=== PATIENT | female | born 1950 | race Caucasian/White ===

== ENCOUNTER 2021-04-28 09:28 | Emergency (ER) | payer MEDICARE, OTHER ==
[2021-04-28] MEDS ORDERED: Sodium Chloride 0.9% 1000 ML 1,000 ML IV SCH (10:00)
[2021-04-28] MEDS ORDERED: Sodium Chloride 0.9% 1000 ML 1,000 ML ONE (10:07)
--- NOTE | 2021-04-28 10:29 | ERPHSYRPT ---
- History of Present Illness Time Seen by Provider: 04/28/21 09:50 Source: patient Exam Limitations: no limitations Patient Subjective Stated Complaint: abnormal labs Triage Nursing Assessment: pt to ED c/o abnormal labs, elevated D dimer. PCP called this am to refer pt to ED for evaluation. pt reports fall around 1 month ago which caused pain and swelling to RLE which has since resolved. also c/o R side back pain intermittently since fall. denies hx blood clots. takes daily 81 mg asa. Physician History: Patient is a 70-year-old female presents to our ED for evaluation of an elevated D-dimer. Patient states she fell approximately a month ago. Patient injured her right calf. Patient's right calf pain resolved. Patient complains of right-sided back pain. Patient's primary care doctor became concerned for pos sible PE. A D-dimer was ordered. D-dimer resulted at 1200 per patient. Patient was advised to come to our ED for a CTA of her chest. Patient otherwise asymptomatic. No chest pain. No shortness of breath. No nausea vomiting or diaphoresis. Negative Homans' sign. Patient denies leg/calf pain. Symptoms are mild in intensity. No specific worsening or improving factors. Patient voices no other complaints or concerns at this time. Timing/Duration: today Severity: mild Modifying Factors: Improves With: nothing Associated Symptoms: denies symptoms Allergies/Adverse Reactions: No Known Drug Allergies Allergy (Unverified 04/28/21 09:51) Home Medications: Aspirin 81 gm Chew [Baby Aspirin 81 mg Chew] 81 mg PO DAILY 04/28/21 [History] Lisinopril/Hydrochlorothiazide [Lisinopril-Hctz 20-12.5 mg Tab] 1 each PO DAILY 04/28/21 [History] Hx Tetanus, Diphtheria Vaccination/Date Given: Yes Hx Influenza Vaccination/Date Given: No Hx Pneumococcal Vaccination/Date Given: No Immunizations Up to Date: No Travel Risk - International Travel Have you traveled outside of the country in past 3 weeks: No - Coronavirus Screening Are you exhibiting any of the following symptoms?: No Close contact with a COVID-19 positive Pt in past 14-21 Days: No - Vaccine Status Have you recieved a Covid-19 vaccination: No - Review of Systems Constitutional: No Symptoms, No Fever, No Chills Eyes: No Symptoms Ears, Nose, & Throat: No Symptoms Respiratory: No Symptoms, No Cough, No Dyspnea Cardiac: No Symptoms, No Chest Pain, No Edema, No Syncope Abdominal/Gastrointestinal: No Symptoms, No Abdominal Pain, No Nausea, No Vomiting, No Diarrhea Genitourinary Symptoms: No Symptoms, No Dysuria Musculoskeletal: No Symptoms, No Back Pain, No Neck Pain Skin: No Symptoms, No Rash Neurological: No Symptoms, No Dizziness, No Focal Weakness, No Sensory Changes Psychological: No Symptoms Endocrine: No Symptoms Hematologic/Lymphatic: No Symptoms Immunological/Allergic: No Symptoms All Other Systems: Reviewed and Negative - Past Medical History Pertinent Past Medical History: Yes Cardiac History: Hypertension - Past Surgical History Past Surgical History: Yes Female Surgical History: Dilation & Curettage - Social History Smoking Status: Never smoker Exposure to second hand smoke: No Drug Use: none Patient Lives Alone: No - Female History Hx Now: No - Nursing Vital Signs Nursing Vital Signs: Initial Vital Signs Temperature 98.1 F 04/28/21 09:40 Pulse Rate 64 04/28/21 09:40 Respiratory Rate 18 04/28/21 09:40 Blood Pressure 182/88 04/28/21 09:40 O2 Sat by Pulse Oximetry 96 04/28/21 09:40 Pain Scale Pain Intensity 0 - Physical Exam General Appearance: no apparent distress, alert Eye Exam: PERRL/EOMI, eyes nml inspection Ears, Nose, Throat Exam: normal ENT inspection, TMs normal, pharynx normal, moist mucous membranes Neck Exam: normal inspection, non-tender, supple, full range of motion Respiratory Exam: normal breath sounds, lungs clear, airway intact, No respiratory distress Cardiovascular Exam: regular rate/rhythm, normal heart sounds, normal peripheral pulses Gastrointestinal/Abdomen Exam: soft, normal bowel sounds, No tenderness, No mass Back Exam: normal inspection, normal range of motion, No CVA tenderness, No vertebral tenderness Extremity Exam: normal inspection, normal range of motion, pelvis stable Neurologic Exam: alert, oriented x 3, cooperative, normal mood/affect, sensation nml, No motor deficits Skin Exam: normal color, warm, dry, No rash Lymphatic Exam: No adenopathy SpO2 Interpretation: normal SpO2: 93 O2 Delivery: Room Air - Course Nursing assessment & vital signs reviewed: Yes EKG Interpreted by Me: RATE (81), Sinus Rhythm, NORMAL AXIS, NORMAL INTERVALS Ordered Tests: Active Orders 24 hr Category Date Time Status [employer] STAT Care 04/28/21 09:54 Active EKG-ER Only STAT Care 04/28/21 09:53 Active IV Insertion STAT Care 04/28/21 09:53 Active Pulse Oximetry (ED) STAT Care 04/28/21 09:53 Active CHEST WITH CONTRAST [CT] Stat Exams 04/28/21 09:53 Completed CBC W DIFF Stat Lab 04/28/21 10:30 Completed CMP Stat Lab 04/28/21 10:30 Completed TROPONIN Q3H Lab 04/28/21 10:30 Completed TROPONIN Q3H Lab 04/28/21 13:00 Ordered TROPONIN Q3H Lab 04/28/21 16:00 Ordered TROPONIN Q3H Lab 04/28/21 19:00 Ordered TROPONIN Q3H Lab 04/28/21 22:00 Ordered Medication Summary Generic Name Dose Route Start Last Admin Trade Name Freq PRN Reason Stop Dose Admin Sodium Chloride 1,000 mls @ 100 mls/hr 04/28/21 10:00 04/28/21 10:08 Sodium Chloride 0.9% 1000 Ml IV 05/28/21 09:59 100 mls/hr .Q10H TORI Administration Lab/Rad Data: Laboratory Result Diagrams 04/28/21 10:30 04/28/21 10:30 Laboratory Results 04/28/21 04/28/21 04/28/21 Range/Units 10:30 10:30 10:30 WBC 5.1 (4.0-10.5) K/mm3 RBC 5.03 (4.1-5.4) M/mm3 Hgb 15.0 (12.0-16.0) gm/dl Hct 46.5 (35-47) % MCV 92.4 (78-100) fl MCH 29.8 (26-32) pg MCHC 32.3 (32-36) g/dl RDW 13.1 (11.5-14.0) % Plt Count 173 (150-450) K/mm3 MPV 10.7 (7.5-11.0) fl Gran % 67.5 H (36.0-66.0) % Eos # (Auto) 0.19 (0-0.5) Absolute Lymphs (auto) 0.98 L (1.0-4.6) Absolute Monos (auto) 0.43 (0.0-1.3) Lymphocytes % 19.4 L (24.0-44.0) % Monocytes % 8.5 (0.0-12.0) % Eosinophils % 3.8 (0.00-5.0) % Basophils % 0.8 (0.0-0.4) % Absolute Granulocytes 3.42 (1.4-6.9) Basophils # 0.04 (0-0.4) Sodium 138 (137-145) mmol/L Potassium 3.9 (3.5-5.1) mmol/L Chloride 103 (98-107) mmol/L Carbon Dioxide 26 (22-30) mmol/L Anion Gap 12.8 (5-15) MEQ/L BUN 20 H (7-17) mg/dL Creatinine 0.84 (0.52-1.04) mg/dL Estimated GFR > 60.0 ML/MIN Glucose 132 H (74-106) mg/dL Calcium 9.8 (8.4-10.2) mg/dL Total Bilirubin 0.70 (0.2-1.3) mg/dL AST 28 (14-36) U/L ALT 15 (0-35) U/L Alkaline Phosphatase 88 (38-126) U/L Troponin I < 0.012 (0.000-0.034) ng/mL Serum Total Protein 7.3 (6.3-8.2) g/dL Albumin 4.2 (3.5-5.0) g/dL - Progress Progress: improved Progress Note: Patient is a 70-year-old female presents to our ED as referral to rule out PE secondary to elevated D-dimer. Chest is negative for PE. Incidental findings include spine arthritis, small hiatal hernia, fatty liver and left renal cyst. Patient asymptomatic. Vital stable. Patient has no complaints. Will discharge home. Patient agrees to follow-up with primary care doctor within 48 hours for reevaluation. Portions of this note were created with voice recognition technology. There may be grammatical, spelling, punctuation or sound alike errors 04/28/21 12:22 Counseled pt/family regarding: lab results, diagnosis, need for follow-up, rad results - Departure Departure Disposition: Home Clinical Impression: Hiatal hernia, Arthritis of spine, Fatty liver, Renal cyst, Elevated d-dimer Condition: Stable Critical Care Time: No Referrals: FLORIN SPARROW MD [Primary Care Provider] - Additional Instructions: Discharge/Care Plan AIDAN LIAO was seen on 04/28/21 in the Emergency Room. The patient was counseled regarding Diagnosis,Lab results, Imaging studies, need for follow up and when to return to the Emergency Room. Prescriptions given: Discharge Note I have spoken with the patient and/or caregivers. I have explained the patient's condition, diagnosis and treatment plan based on the information available to me at this time. I have answered the patient's and/or caregiver's questions and addressed any concerns. The patient and/or caregivers have as good understanding of the patient's diagnosis, condition and treatment plan as can be expected at this point. The vital signs have been stable. The patient's condition is stable and appropriate for discharge from the emergency department. The patient will pursue further outpatient evaluation with the primary care physician or other designated or consulting physician as outlined in the discharge instructions. The patient and/or caregivers are agreeable to this plan of care and follow-up instructions have been explained in detail. The patient and/or caregivers have received these instruction. The patient/and or caregivers are aware that any significant change in condition or worsening of symptoms should prompt an immediate return to this or the closest emergency department or call 911.
[2021-04-28 10:32] LABS: Absolute Neutrophil Ct (ANC) 3.42 (1.4-6.9); BASOPHIL % 0.8 % (0.0-0.4); Basophil (Absolute #) 0.04 (0-0.4); Eosinophil % 3.8 % (0.00-5.0); Eosinophil (Absolute #) 0.19 (0-0.5); Hematocrit 46.5 % (35-47); Lymphocyte (Absolute #) 0.98 (1.0-4.6); Lymphocytes % 19.4 % (24.0-44.0); Mean Cell Volume 92.4 fl (78-100); Mean Corpuscular Hemoglobin 29.8 pg (26-32); Mean Corpuscular Hgb Concent. 32.3 g/dl (32-36); Mean Platelet Volume 10.7 fl (7.5-11.0); Monocyte (Absolute #) 0.43 (0.0-1.3); Monocytes % 8.5 % (0.0-12.0); Neutrophil % 67.5 % (36.0-66.0); Platelet Count 173 K/mm3 (150-450); Red Blood Count 5.03 M/mm3 (4.1-5.4); Red Cell Distribution Width 13.1 % (11.5-14.0); White Blood Count 5.1 K/mm3 (4.0-10.5)
[2021-04-28 10:44] LABS: ALBUMIN 4.2 g/dL (3.5-5.0); ALKALINE PHOSPHATASE 88 U/L (38-126); ANION GAP 12.8 MEQ/L (5-15); BLOOD UREA NITROGEN 20 mg/dL (7-17); CHLORIDE 103 mmol/L (98-107); Calcium 9.8 mg/dL (8.4-10.2); Carbon Dioxide 26 mmol/L (22-30); Creatinine 1 0.84 mg/dL (0.52-1.04); EST GLOMERULAR FILTRATION RATE > 60.0 ML/MIN; Glucose 132 mg/dL (74-106); Potassium 3.9 mmol/L (3.5-5.1); SGOT/AST 28 U/L (14-36); SGPT/ALT 15 U/L (0-35); SODIUM 138 mmol/L (137-145); Total Protein 7.3 g/dL (6.3-8.2)
--- NOTE | 2021-04-28 11:35 | XRAY ---
Indication: Right chest pain. Elevated d-dimer. Multiple contiguous axial images obtained through the chest using 80 cc Isovue 370 contrast and PE protocol. Comparison: None There is good opacification of the pulmonary arteries to include the lobar and segmental branches. No pulmonary embolus. Heart is not enlarged. Aorta normal in course and caliber. No pathologic mediastinal/hilar lymphadenopathy. Small hiatal hernia. Lungs demonstrates mild scattered subsegmental atelectasis/scarring bilaterally. No suspicious pulmonary mass, infiltrate, or effusion. Bony thorax intact with mild degenerative changes throughout the spine. Limited upper abdomen demonstrates mild fatty liver and 1.2 cm left mid renal cyst. Impression: 1. Negative pulmonary embolus. Scattered atelectasis/scarring. No acute cardiopulmonary abnormalities. 2. Incidental small hiatal hernia, fatty liver, and left renal cyst.
[2021-04-28 12:02] VITALS: PULSE 64
[2021-04-28 12:35] VITALS: BP 146/94; O2SAT 96
== END 2021-04-28 12:41 | disposition home or self-care (01) ==
LOC: ED 09:28
DX: K44.9 Diaphragmatic hernia without obstruction or gangrene (principal); M47.819 Spondylosis without myelopathy or radiculopathy, site unspecified; K76.0 Fatty (change of) liver, not elsewhere classified; N28.1 Cyst of kidney, acquired; R79.89 Other specified abnormal findings of blood chemistry; M79.661 Pain in right lower leg
CPT/HCPCS: 36000; 36415; 71260; 80053; 84484; 85025; 93005; 93041; 94760; 99284

== ENCOUNTER 2022-10-13 12:28 | Emergency (ER) | payer MEDICARE, OTHER ==
--- NOTE | 2022-10-13 13:19 | ERPHSYRPT ---
- History of Present Illness Source: patient Exam Limitations: no limitations Patient Subjective Stated Complaint: Pt states "I have a slipped bursa and I have been doing laundry yesterday and behind my right knee there is a burning sensation and my daughter thinks I might have a blood clot." Triage Nursing Assessment: Pt presented alert and oriented X 3, skin pwd. Pt ambulates with an upright steady gait, able to speak in clear full sentences. Pt right knee has small swelling noted anteriorly, vericose veins noted posteriorly. Physician History: 71 yo wf w R posterior knee pain x 2 days. Pt's daughter is a massage therapist who told her to come to the ER to r/o DVT. She denies trauma, and pain is worse w weight bearing. Pain is currently 4/10. She denies h/o DVT/PE. Chest pain and dyspnea are denied. Method of Injury: unknown Occurred: days ago (2 days ago) Quality: constant Severity of Pain-Max: moderate Severity of Pain-Current: moderate Lower Extremities Pain: knee: right Modifying Factors: Improves With: movement Associated Symptoms: none Allergies/Adverse Reactions: No Known Drug Allergies Allergy (Unverified 04/28/21 09:51) Home Medications: Aspirin 81 gm Chew [Baby Aspirin 81 mg Chew] 81 mg PO DAILY 04/28/21 [History] Lisinopril/Hydrochlorothiazide [Lisinopril-Hctz 20-12.5 mg Tab] 1 each PO DAILY 04/28/21 [History] Hx Tetanus, Diphtheria Vaccination/Date Given: No Hx Influenza Vaccination/Date Given: No Hx Pneumococcal Vaccination/Date Given: No Immunizations Up to Date: Yes Travel Risk - International Travel Have you traveled outside of the country in past 3 weeks: No - Coronavirus Screening Are you exhibiting any of the following symptoms?: No Close contact with a COVID-19 positive Pt in past 14-21 Days: No - Vaccine Status Have you recieved a Covid-19 vaccination: No - Review of Systems Constitutional: No Symptoms Eyes: No Symptoms Ears, Nose, & Throat: No Symptoms Respiratory: No Symptoms Cardiac: No Symptoms Abdominal/Gastrointestinal: No Symptoms Genitourinary Symptoms: No Symptoms Skin: No Symptoms Neurological: No Symptoms Psychological: No Symptoms Endocrine: No Symptoms Hematologic/Lymphatic: No Symptoms Immunological/Allergic: No Symptoms - Past Medical History Pertinent Past Medical History: Yes Cardiac History: Hypertension - Past Surgical History Past Surgical History: Yes Female Surgical History: Dilation & Curettage - Social History Smoking Status: Never smoker Exposure to second hand smoke: No Drug Use: none Patient Lives Alone: No - Nursing Vital Signs Nursing Vital Signs: Initial Vital Signs Temperature 97.6 F 10/13/22 12:41 Pulse Rate 75 10/13/22 12:41 Respiratory Rate 20 10/13/22 12:41 Blood Pressure 187/92 10/13/22 12:41 O2 Sat by Pulse Oximetry 95 10/13/22 12:41 Pain Scale Pain Intensity 0 Hypertensive - Physical Exam General Appearance: no apparent distress Eyes, Ears, Nose, Throat Exam: normal ENT inspection, TMs normal, pharynx normal, moist mucous membranes Neck Exam: normal inspection, non-tender, supple, full range of motion, No Brudzinski, No Kernig's, No meningismus, No carotid bruit Cardiovascular/Respiratory Exam: normal breath sounds, regular rate/rhythm, heart sounds normal Gastrointestinal/Abdominal Exam: non-tender, soft Back Exam: normal inspection, normal range of motion, No CVA tenderness Hips Exam: bilateral: non-tender, normal inspection, normal range of motion, no evidence of injury Legs Exam: bilateral leg: non-tender, normal inspection, normal range of motion, no evidence of injury Knees Exam: right knee: other (Small area of infra-patellar edema(probable bursa)/No deformity/No erythema/Good popliteal pulse/o instbility/good pedal pulse, distal sensation, and capillary return) Ankle Exam: bilateral ankle: non-tender, normal inspection, normal range of motion, no evidence of injury Foot Exam: bilateral foot: non-tender, normal inspection, normal range of motion, no evidence of injury Neuro/Tendon Exam: normal sensation, normal motor functions, normal tendon functions, responds to pain, no evidence tendon injury, No motor deficit, No sensory deficit Mental Status Exam: alert, oriented x 3, cooperative Skin Exam: normal color, warm, dry SpO2 Interpretation: normal SpO2: 95 O2 Delivery: Room Air - Course Nursing assessment & vital signs reviewed: Yes - Radiology Exams Knee X-ray Interpretation: Discussed w/ radiologist (R knee-osteopenia/Mild focal STS/Nothing acute) - Radiology Ultrasound Exam Venous Lower Extremity Ultrasound: discussed w/radiologist (Neg per Rad), Other (Venous doppler RLE neg per Tech) Ordered Tests: Active Orders 24 hr Category Date Time Status Kelechi Bandage Application -[facility] STAT Care 10/13/22 14:38 Completed KNEE (3 VIEWS) Stat Exams 10/13/22 14:08 Completed VENOUS UNILAT/LIMITED EXTREMIT [US] Stat Exams 10/13/22 13:12 Completed - Progress Progress: improved Progress Note: 10/13/22 14:24 Nursing note and vital signs reviewed No food or housing insecurities noted Pt refused all pain meds Additional history per son US result reviewed and shared w pt Pt refused R knee XR after exam but requested it after US negative Kelechi wrap R knee per nursing/NVI 10/13/22 14:39 Counseled pt/family regarding: diagnosis, need for follow-up, rad results Medical Desision Making - Diagnostic Testing Diagnostic Testing: Diagnostic tests were ordered,analyzed, and reviewed by me and used in my medical decision making for this patient. Radiologic studies (if ordered) were read by me initially then discussed with the radiologist . - Risk of complications Low Risk: Low risk of morbidity from additional dx testing or treatment - Departure Departure Disposition: Home Clinical Impression: Knee pain, right Condition: Stable Critical Care Time: No Referrals: FLORIN SPARROW MD [ACTIVE STAFF] - Follow up/PCP as directed Instructions: Knee Pain (DC) Additional Instructions: Follow up with your family Motrin/Tylenol as needed for pain Weight bearing as tolerated Return to ER for worsening of condition
--- NOTE | 2022-10-13 14:10 | XRAY ---
Indication: Pain. Two-dimensional sonogram and color Doppler imaging of the major venous vessels of the right leg performed. Comparison: None No thrombus seen in the examined deep venous vessels of the right leg including greater saphenous vein. Veins demonstrate normal compressibility. Venous waveforms are normal with and without augmentation. Impression: Right leg negative for DVT.
--- NOTE | 2022-10-13 14:29 | XRAY ---
Indication: Pain. No known injury. Comparison: None 3 view right knee demonstrates osteopenia, minimal lower leg vascular calcifications, and mild focal soft tissue swelling anterior to tibial tuberosity. No other bony, articular, or soft tissue abnormalities.
[2022-10-13 14:34] VITALS: BP 170/80; PULSE 70
[2022-10-13 14:39] VITALS: O2SAT 95
== END 2022-10-13 14:49 | disposition home or self-care (01) ==
LOC: ED 12:28
DX: M25.561 Pain in right knee (principal); I10 Essential (primary) hypertension; Z79.899 Other long term (current) drug therapy; Z28.310 Unvaccinated for COVID-19
CPT/HCPCS: 73562; 93971; 99283